=== PATIENT | male | born 1975 | race Caucasian/White ===

== ENCOUNTER 2025-06-10 10:41 | Emergency (ER) | payer SELFPAY ==
[2025-06-10 10:42] VITALS: BP 170/94; PULSE 57; RESP 16; TEMP 36.7; O2SAT 100; BMI 26.4
--- NOTE | 2025-06-10 11:55 | ED.VIS.GI ---
HPI HPI - GI History of Present Illness Chief Complaint: Abd Pain Informant: patient Abdominal Pain/Flank Pain Onset: Today Context: Sudden Onset Timing: Continuous Quality: Sharp and Stabbing Location: LLQ Nausea/Vomiting/Emesis GI Symptom: Positive for Nausea; Negative for Vomiting Diarrhea/Melena/Hematochezia GI Symptom: Positive for Diarrhea; Negative for Melena or Hematochezia Associated Symptoms Associated Symptoms: Negative for Dysuria, Frequency or Hematuria Narrative Narrative: Patient presents with abdominal pain that began this morning. Patient states it began rather suddenly. Patient states it has been constant. Patient describes it as sharp and stabbing. Patient states it is over the left lower abdomen. Patient states it feels similar to prior episodes of diverticulitis. Patient states nothing makes the pain worse and nothing makes it better. Patient admits to some nausea but denies any vomiting or hematemesis. Patient admits to some diarrhea but denies any melena or hematochezia. Patient denies any dysuria, frequency, or hematuria. PFSH PFS Medical History Hypertension Diverticulitis Home Medications ?Medication ?Instructions ?Recorded ?Last Taken ?Type docusate sodium 100 mg capsule 100 mg PO BID 06/10/25 Unknown History metronidazole 500 mg tablet 500 mg PO Q6H #40 tabs 06/10/25 Unknown Rx sulfamethoxazole 800 1 tab PO BID #20 TABLETS 06/10/25 Unknown Rx mg-trimethoprim 160 mg tablet Allergy/AdvReac Type Severity Reaction Status Date / Time acetaminophen Allergy Intermediate Hives Verified 06/10/25 10:46 penicillin V (From Pen-Vee K) Allergy Intermediate Swelling Verified 06/10/25 10:46 strawberry (strawberries) Allergy Intermediate Swelling Verified 06/10/25 10:46 cephalexin AdvReac Intermediate Nausea Verified 06/10/25 10:46 Social History (Updated 06/10/25 @ 13:[address] Dennis Robertson DO) Smoking Status: Current every day smoker tobacco type: cigarettes substance use type: marijuana ROS ROS ED Constitutional Constitutional ED: Reports chills and subjective; Denies fever(s) Eyes Eyes: Denies blurry vision or change in vision ENT ENT ED: Denies rhinorrhea or sore throat Cardiovascular Cardiovascular: Denies chest pain or palpitations Respiratory/Chest Respiratory/Chest: Denies cough or dyspnea Gastrointestinal Gastrointestinal: Reports abdominal pain and nausea; Denies vomiting Genitourinary Genitourinary ED: Denies dysuria or hematuria Musculoskeletal Musculoskeletal: Denies back pain or neck pain Integumentary Denies abscess or rash Neurologic Neurologic: Denies headache(s) or weakness Allergic/Immunologic Allergic/Immunologic ED: Denies mouth swelling or urticaria EXAM Physical Exam Const Vital Signs: 06/10/25 10:42 Temperature 98.0 F Temperature Source Oral Pulse Rate 57 L Respiratory Rate 16 Blood Pressure 170/94 H Blood Pressure Mean 119 Pulse Ox 100 Oxygen Delivery Method Room Air Positive well nourished and well developed Constitutional Narrative: BMI is 26.4. General Appearance ED: well developed and NAD HEENT Reports moist mucous membranes Neck supple and no JVD Resp normal respiratory effort and clear to auscultation bilaterally Cardio regular rate and regular rhythm GI non-distended Palpation: soft and tender LLQ; Negative for guarding or rebound tenderness present Neuro CN's II-XII intact bilaterally, moves all extremities and no sensory deficits noted Sensorium / Orientation: alert, oriented to person, oriented to place and oriented to time Motor Exam: strength 5/5 throughout Psych mental status grossly normal and thought process normal MDM MDM MDM Narrative Medical decision making narrative: Differential diagnosis includes bowel obstruction, perforation, diverticulitis, diverticulosis, urinary tract infection, ureteral calculus, and viral illness. CBC will be obtained to assess for leukocytosis and anemia. Comprehensive metabolic profile will be obtained to assess for hepatic function, renal function, and electrolyte abnormality. Urinalysis will be obtained to assess for urinary tract infection and hematuria. CT scan of the abdomen and pelvis will be obtained for frequent bowel obstruction, perforation, diverticulitis, and ureteral calculus. Treatment and Re-Evaluation :: Patient was given IV fluids, morphine, and Zofran. Patient was advised of his findings. Patient states he is allergic to Cipro in addition to penicillin. Patient was given prescriptions for Bactrim and Flagyl. Patient was given his first dose here. Patient was instructed to follow-up with his primary care physician in 5 to 7 days. Patient was instructed to return if worse in any way. Patient understood and was agreeable with the plan. All questions were answered. Discharge Plan Triage Chief Complaint: Abd Pain ED Provider: Dennis Robertson Dx/Rx/DC Orders Clinical Impression: Diverticulitis, Abdominal pain, Nicotine vapor product user Instructions: ED Diverticulitis Prescriptions: New metronidazole 500 mg tablet 500 mg PO Q6H Qty: 40 0RF sulfamethoxazole-trimethoprim 800-160 mg tablet 1 tab PO BID Qty: 20 0RF No Action docusate sodium 100 mg capsule 100 mg PO BID Primary Care Provider: YISEL LARA Referrals: YISEL LARA [Other] - 5-7 Days Print Language: [place] Disposition Disposition: Home, Self Care
[2025-06-10] MEDS: 0.9% Normal Saline (1000mL) 1,000 ML 999 ML IV (12:17)
[2025-06-10 12:25] LABS: Mucous, Urine 0 SEEN /hpf (<or=2+); Squamous Epithelial Cells - UA 0 SEEN /hpf (0-5)
--- NOTE | 2025-06-10 12:30 | CT_ITS ---
PROCEDURE: ABDOMEN/PELVIS W IV CONT ONLY 06/10/2025 REASON FOR EXAM: ABDOMINAL PAIN TECHNIQUE: Procedure Code: [id number] Modality: CT Procedure: ABDOMEN/PELVIS W IV CONT ONLY Coronal and Sagittal reconstruction series were provided. CONTRAST: Isovue 370 VOLUME: 99 mL One or more dose reduction techniques were used (e.g., Automated exposure control, adjustment of the mA and/or kV according to patient size, use of iterative reconstruction technique. RADIATION DOSE SUMMARY: CTDlvol: 32 mGy DLP: 671 mGycm COMPARISON: None FINDINGS: Lung bases: Clear Liver: Normal Gallbladder: Normal Spleen: Small granuloma. Otherwise normal. Pancreas: Normal Adrenals: Normal Kidneys: Normal. No collecting system dilation. Bladder: Normal. Reproductive Organs: Normal male Bowel: Stomach and small bowel appearance normal. Diverticulosis of the colon is present. This is associated with circumferential thickening, edema and stranding of the sigmoid colon. No free air, phlegmon or abscess. Appendix: Normal Lymph nodes: Unremarkable. Vasculature: [id number] atherosclerosis without aneurysm. Peritoneum / Retroperitoneum: No free air, free fluid or mass. Bones: Lower lumbar facet hypertrophy. CT/Abdomen/Pelvis W IV Cont ONLY IMPRESSION: 1. Acute uncomplicated sigmoid diverticulitis. Reading Location: [id number]
[2025-06-10 12:31] LABS: Color, Urine Yellow (Yellow); Glucose, Dipstick Normal (Normal); Ketone-Dipstick Negative (Negative); Leukocyte Esterase-Dipstick Negative /ul (Negative); Nitrite-Dipstick Negative (Negative); Occult Blood-Urine 10 /ul (Negative); Protein-Dipstick 30 mg/dl (Negative); Specific Gravity, Urine 1.010 (1.002-1.030); Urine Bilirubin Dipstick Negative (Negative)
[2025-06-10 12:40] LABS: Red Blood Cells-Urine 0-5 SEEN /hpf (0-5)
[2025-06-10 12:41] VITALS: BP 162/94; PULSE 48; RESP 15; TEMP 36.8; O2SAT 100
[2025-06-10 12:51] LABS: Hematocrit 30.1 % (40-54); Hemoglobin 10.0 g/dL (13.0-16.5); Immature Granulocytes Count 0.040 X10^3/uL (0.0-0.0); Mean Corp Hgb Conc 33.2 g/dL (32-36); Mean Corpuscular Volume 97.1 fL (80-94); Mean Platelet Vol. 9.6 fl (6.2-12.0); NRBC Flagged by Analyzer 0 % (0-5); Platelet Count 244 K/mm3 (150-450); RBC Distribution Width CV 15.1 % (11.6-14.6); RBC Distribution Width SD 54.4 fl (35.1-43.9); Red Blood Count 3.10 M/mm3 (4.6-6.2); White Blood Count 9.6 K/mm3 (4.4-11.0)
[2025-06-10 13:27] LABS: AST(SGOT) 25 U/L (<=37); Alanine Aminotransfer ALT/SGPT 9 U/L (<=46); Albumin, Serum 3.7 g/dL (3.5-5.0); Alkaline Phosphatase 78 U/L (40-129); Anion Gap 13 (5-15); BUN 5 mg/dL (4-19); BUN/Creat Ratio 6.1 RATIO (10-20); Calcium,Total 8.4 mg/dL (7.6-11.0); Carbon Dioxide 20.5 mmol/L (21.0-32.0); Chloride 107 mmol/L (98-108); Estimated Creatinine Clearance 127.90 ml/min (50-250); Globulin 3.3 g/dL (2.2-4.2); Glucose 89 mg/dL (70-99); Potassium 3.8 mmol/L (3.3-5.1)
[2025-06-10 14:08] VITALS: BP 168/102; PULSE 49; RESP 15; TEMP 36.5; O2SAT 99
[2025-06-10] MEDS: Smz/Tmp Ds Tablet 1 TABLET PO (14:13)
== END 2025-06-10 14:16 | disposition home or self-care (01) ==
PROVIDERS: Emergency Provider Emergency Medicine; Visit Provider Emergency Medicine
DX: K57.32 Diverticulitis of large intestine without perforation or abscess without bleeding (principal); I10 Essential (primary) hypertension; Z79.899 Other long term (current) drug therapy; F17.290 Nicotine dependence, other tobacco product, uncomplicated
CPT/HCPCS: 74177; 80053; 81001; 85025; 96361; 96374; 96375; 99285; Q9967; A4216; J2405